=== PATIENT | female | born 1950 | race Caucasian/White ===

== ENCOUNTER 2023-10-09 01:02 | Inpatient (IN) | payer MEDICARE ==
[~2023-10-09] VITALS: Ht 170.2 cm; Wt 62.6 kg
[~2023-10-09 01:02] MED LIST: ASPI-1406 PO; ATOR20TA65 MT; CYCL10TA21 PO; DOCU-150 PO; FENO134C21 PO; HYDR-4001 PO; LEFL20TA21 PO; LOSA25TA26 PO; METO-385 PO; PRED5TAB48 PO; VITA-261
[2023-10-09] MEDS: SODIUM CHLORIDE 0.9% 1,000 ML IV ONE (01:36)
[2023-10-09 01:55] LABS: BASOPHILS % 0.9 % (0.0-2.0); EOSINOPHILS % 0.8 % (0.0-5.0); HEMATOCRIT. 38.9 % (36.0-48.0); HEMOGLOBIN. 12.6 g/dL (12.0-16.0); MEAN CORPUSCULAR HEMOGLOBIN 27.6 pg (28.0-32.0); MEAN CORPUSCULAR HGB CONC 32.5 g/dL (31.0-37.0); MEAN CORPUSCULAR VOLUME 84.8 fL (81.0-99.0); MEAN PLATELET VOLUME 9.7 fl (7.4-10.4); MONOCYTES % 5.7 % (2.0-8.0); NEUTROPHILS % 52.6 % (40.0-76.0); PLATELET 243 x1000/uL (130-400); RED BLOOD CELL COUNT 4.58 mill/uL (4.2-5.4); RED CELL DISTRIBUTION WIDTH 16.2 % (11.6-14.6); WHITE BLOOD COUNT 11.1 x1000/uL (4.5-11.0)
[2023-10-09 01:59] LABS: CHLORIDE 106 mEq/L (98-107); SODIUM 136 mEq/L (136-145)
[2023-10-09 02:00] LABS: CARBON DIOXIDE 21 mEq/L (21-32)
[2023-10-09 02:05] LABS: CREATININE 1.2 mg/dL (0.6-1.0); GLUCOSE 264 mg/dL (70-105); UREA NITROGEN BLOOD 24 mg/dL (9-23)
[2023-10-09 02:21] LABS: TROPONIN I HIGH SENSITIVITY 50 ng/L (3.0-34)
[2023-10-09 02:32] LABS: PROTHROMBIN TIME 10.8 sec (9.6-11.0)
[2023-10-09] MEDS: ASPIRIN 81MG TABLET PO ONE (02:54)
[2023-10-09 12:00] VITALS: BP 129/75; PULSE 71; RESP 20; TEMP 97.6
[2023-10-09] MEDS: METOPROLOL TARTRATE 25MG TABLET PO NR (13:15)
[2023-10-09] MEDS ORDERED: ONDANSETRON HCL 4MG/2ML INJ IV PRN (13:15)
[2023-10-09] MEDS ORDERED: ACETAMINOPHEN 325MG TABLET PO PRN (13:15)
[2023-10-09 13:35] VITALS: BP 129/75; PULSE 71; RESP 20; TEMP 97.6
[2023-10-09 20:00] VITALS: BP 162/82; PULSE 75; RESP 20; TEMP 98
[2023-10-09] MEDS: METOPROLOL TARTRATE 25MG TABLET PO SCH (20:43)
[2023-10-09] MEDS ORDERED: METOPROLOL TARTRATE 25MG TABLET PO SCH (21:00)
[2023-10-09] MEDS: ATORVASTATIN CALCIUM 40MG TABLET PO SCH (21:00)
[2023-10-09] MEDS ORDERED: DOCUSATE SODIUM 100MG CAPSULE PO PRN (21:00)
[2023-10-09] MEDS ORDERED: CYCLOBENZAPRINE 10MG TABLET PO PRN (21:14)
[2023-10-09] MEDS ORDERED: HYDROCODONE/ACETAMINOPHEN 5/325MG TABLET PO PRN (21:14)
[2023-10-10] VITALS: BP 155/80; PULSE 74; RESP 20; TEMP 97.8
[2023-10-10 04:00] VITALS: BP 177/100; PULSE 78; RESP 20; TEMP 98.2
[2023-10-10] MEDS: CLONIDINE 0.1MG TABLET PO PRN (04:44)
[2023-10-10 08:00] VITALS: BP 143/77; PULSE 78; RESP 20; TEMP 98.1
[2023-10-10] MEDS: ASPIRIN 81MG EC TABLET PO SCH (08:40)
[2023-10-10] MEDS: LOSARTAN 25 MG TABLET PO SCH (08:40)
[2023-10-10] MEDS ORDERED: ATORVASTATIN CALCIUM 40MG TABLET PO SCH (09:00)
[2023-10-10 12:00] VITALS: BP 130/79; PULSE 79; RESP 18; TEMP 98.7
[2023-10-10] MEDS: LEVOTHYROXINE SODIUM 50MCG TABLET PO SCH (14:18)
[2023-10-10] MEDS ORDERED: LEVO50TA MT (14:23)
[2023-10-10 15:34] VITALS: BP 18/130; PULSE 79; TEMP 98.7; O2SAT 79
[2023-10-10 17:40] LABS: POTASSIUM 4.1 mEq/L (3.5-5.1)
[2023-10-10 17:41] LABS: CALCIUM 9.1 mg/dL (8.7-10.4)
[2023-10-10 17:42] LABS: BASOPHILS % 0.5 % (0.0-2.0); EOSINOPHILS % 0.9 % (0.0-5.0); HEMOGLOBIN. 12.5 g/dL (12.0-16.0); LYMPHOCYTES % 18.4 % (20.0-50.0); MEAN CORPUSCULAR VOLUME 84.8 fL (81.0-99.0); MEAN PLATELET VOLUME 9.8 fl (7.4-10.4); MONOCYTES % 8.1 % (2.0-8.0); NEUTROPHILS % 72.1 % (40.0-76.0); PLATELET 199 x1000/uL (130-400); RED BLOOD CELL COUNT 4.48 mill/uL (4.2-5.4)
== END 2023-10-10 16:50 | disposition home or self-care (01) | DRG 310 ==
LOC: ER 01:12 → EDBD 01:12 → 5WST 03:33 → EDBEDREQTM 03:37 → EDBEDREQ 03:37 → 7WST 12:05
PROVIDERS: ADMIT Internal Medicine; ATTEND Internal Medicine
DX: I47.10 Supraventricular tachycardia, unspecified (principal); I95.89 Other hypotension; I10 Essential (primary) hypertension; I25.10 Atherosclerotic heart disease of native coronary artery without angina pectoris; I49.3 Ventricular premature depolarization; Z88.0 Allergy status to penicillin; Z79.899 Other long term (current) drug therapy
CPT/HCPCS: 36415; 71045; 80048; 83036; 83880; 84443; 84484; 85025; 93005; 99291; J7030

== ENCOUNTER 2024-02-06 21:06 | Inpatient (IN) | payer MEDICARE ==
[~2024-02-06] VITALS: Ht 157.5 cm; Wt 103.4 kg
[~2024-02-06 21:06] MED LIST changes: +LEVO50TA MT
[2024-02-06] MEDS: SODIUM CHLORIDE 0.9% 500 ML IV ONE (21:46)
[2024-02-06 21:55] LABS: CHLORIDE 109 mEq/L (98-107); POTASSIUM 4.3 mEq/L (3.5-5.1); SODIUM 137 mEq/L (136-145)
[2024-02-06 21:56] LABS: CARBON DIOXIDE 16 mEq/L (21-32)
[2024-02-06 22:01] LABS: CREATININE 1.3 mg/dL (0.6-1.0)
[2024-02-06 22:02] LABS: GLUCOSE 160 mg/dL (70-105); UREA NITROGEN BLOOD 18 mg/dL (9-23)
[2024-02-06 22:10] LABS: TROPONIN I HIGH SENSITIVITY 98 ng/L (3.0-34)
[2024-02-06] MEDS: ASPIRIN 325MG EC TABLET PO ONE (22:48)
[2024-02-07] MEDS: METOPROLOL TARTRATE 50MG TABLET PO SCH
[2024-02-07 00:13] LABS: THYROID STIMULATING HORMONE 3.41 uIU/mL (0.55-4.78)
[2024-02-07 02:37] LABS: BASOPHILS % 0.8 % (0.0-2.0); EOSINOPHILS % 0.3 % (0.0-5.0); HEMATOCRIT. 35.1 % (36.0-48.0); HEMOGLOBIN. 11.4 g/dL (12.0-16.0); LYMPHOCYTES % 15.7 % (20.0-50.0); MEAN CORPUSCULAR HEMOGLOBIN 28.2 pg (28.0-32.0); MEAN CORPUSCULAR HGB CONC 32.4 g/dL (31.0-37.0); MEAN CORPUSCULAR VOLUME 87.2 fL (81.0-99.0); MEAN PLATELET VOLUME 9.5 fl (7.4-10.4); MONOCYTES % 7.6 % (2.0-8.0); NEUTROPHILS % 75.6 % (40.0-76.0); PLATELET 212 x1000/uL (130-400); RED BLOOD CELL COUNT 4.03 mill/uL (4.2-5.4); RED CELL DISTRIBUTION WIDTH 15.4 % (11.6-14.6); WHITE BLOOD COUNT 8.7 x1000/uL (4.5-11.0)
[2024-02-07 04:05] LABS: PROTHROMBIN TIME 10.8 sec (9.6-11.0)
[2024-02-07] MEDS: ENOXAPARIN 100MG/ML SYR SUBCUT SCH (06:40)
[2024-02-07 22:28] VITALS: BP 115/74; PULSE 65; RESP 18; TEMP 37.5856
[2024-02-08 00:02] VITALS: BP 132/67; PULSE 71; RESP 19; TEMP 36.3918; O2SAT 96
[2024-02-08 04:00] VITALS: BP 146/72; PULSE 73; RESP 18; TEMP 36.44736; O2SAT 98
[2024-02-08 07:51] LABS: HEMATOCRIT 36.4 % (36.0-48.0); HEMOGLOBIN 11.7 g/dL (12.0-16.0); MEAN CORPUSCULAR HEMOGLOBIN 27.7 pg (28.0-32.0); MEAN CORPUSCULAR HGB CONC 32.2 g/dL (31.0-37.0); MEAN CORPUSCULAR VOLUME 86.2 fL (81.0-99.0); PLATELET 184 x1000/uL (130-400); RED BLOOD CELL COUNT 4.23 mill/uL (4.2-5.4); RED CELL DISTRIBUTION WIDTH 14.9 % (11.6-14.6); WHITE BLOOD COUNT 4.6 x1000/uL (4.5-11.0)
[2024-02-08 08:00] VITALS: BP 150/70; PULSE 68; RESP 20; TEMP 36.61404; O2SAT 98
[2024-02-08 08:18] LABS: CARBON DIOXIDE 22 mEq/L (21-32); CHLORIDE 111 mEq/L (98-107); POTASSIUM 3.8 mEq/L (3.5-5.1); SODIUM 140 mEq/L (136-145)
[2024-02-08 08:19] LABS: CALCIUM 8.7 mg/dL (8.7-10.4)
[2024-02-08 08:22] LABS: CREATINE KINASE MB FRACTION 7.3 ng/mL (0.5-3.6)
[2024-02-08 08:24] LABS: CREATININE 0.9 mg/dL (0.6-1.0); GLUCOSE 96 mg/dL (70-105); TRIGLYCERIDE 187 mg/dL (0-150); UREA NITROGEN BLOOD 26 mg/dL (9-23)
[2024-02-08 08:25] LABS: LDL CHOLESTEROL 67 mg/dL (5-100)
[2024-02-08 08:26] LABS: CHOLESTEROL 133 mg/dL (<200); CREATINE KINASE 98 IU/L (34-145); HDL CHOLESTEROL 34 mg/dL (>65)
[2024-02-08 08:36] LABS: TROPONIN I HIGH SENSITIVITY 2634 ng/L (3.0-34)
[2024-02-08] MEDS ORDERED: METOPROLOL TARTRATE 50MG TABLET PO SCH (09:00)
[2024-02-08] MEDS ORDERED: SACUBITRIL/VALSARTAN 24MG/26MG TABLET PO SCH (09:00)
[2024-02-08] MEDS: ASPIRIN 81MG TABLET PO SCH (09:26)
[2024-02-08] MEDS: DOCUSATE SODIUM 100MG CAPSULE PO SCH (09:26)
[2024-02-08] MEDS: SACUBITRIL/VALSARTAN 24MG/26MG TABLET PO SCH (09:27)
[2024-02-08] MEDS: SODIUM BICARBONATE 650MG TABLET PO SCH (09:30)
[2024-02-08 09:39] LABS: CREATINE KINASE 101 IU/L (34-145)
[2024-02-08 11:46] VITALS: BP 136/69; PULSE 59; RESP 18; TEMP 36.28068; O2SAT 98
[2024-02-08] MEDS: AMIODARONE 200MG TABLET PO SCH (13:30)
[2024-02-08] MEDS: SODIUM CHLORIDE 0.9% 1,000 ML IV SCH (14:50)
[2024-02-08 16:00] VITALS: BP 140/60; PULSE 70; RESP 22; TEMP 36.44736; O2SAT 100
[2024-02-08 16:58] LABS: CLARITY URINE CLEAR (CLEAR); COLOR URINE YELLOW (YELLOW); GLUCOSE URINE NEGATIVE (NEGATIVE); KETONES URINE NEGATIVE (NEGATIVE); LEUKOCYTE ESTERASE URINE NEGATIVE (NEGATIVE); NITRITE URINE NEGATIVE (NEGATIVE); OCCULT BLOOD URINE NEGATIVE (NEGATIVE); PH URINE 5.5 (4.5-8.0); PROTEIN URINE NEGATIVE (NEGATIVE); SPECIFIC GRAVITY URINE 1.009 (1.005-1.030); UROBILINOGEN URINE 0.2 E.U./dL (0.2-1.0)
[2024-02-08 19:57] VITALS: BP 98/74; PULSE 85; RESP 18; TEMP 36.61404; O2SAT 97
[2024-02-08] MEDS: ATORVASTATIN CALCIUM 40MG TABLET PO SCH (21:20)
[2024-02-09] VITALS: BP 136/70; PULSE 65; RESP 18; TEMP 36.28068; O2SAT 98
[2024-02-09 04:00] VITALS: BP 106/70; PULSE 67; RESP 20; TEMP 36.28068; O2SAT 96
[2024-02-09 06:51] LABS: HEMATOCRIT 38.4 % (36.0-48.0); HEMOGLOBIN 12.4 g/dL (12.0-16.0); MEAN CORPUSCULAR HEMOGLOBIN 28.1 pg (28.0-32.0); MEAN CORPUSCULAR HGB CONC 32.4 g/dL (31.0-37.0); MEAN CORPUSCULAR VOLUME 86.6 fL (81.0-99.0); PLATELET 184 x1000/uL (130-400); RED BLOOD CELL COUNT 4.43 mill/uL (4.2-5.4); RED CELL DISTRIBUTION WIDTH 14.9 % (11.6-14.6); WHITE BLOOD COUNT 4.8 x1000/uL (4.5-11.0)
[2024-02-09 06:54] LABS: CHLORIDE 108 mEq/L (98-107); POTASSIUM 3.9 mEq/L (3.5-5.1); SODIUM 142 mEq/L (136-145)
[2024-02-09 06:55] LABS: CALCIUM 9.1 mg/dL (8.7-10.4); CARBON DIOXIDE 26 mEq/L (21-32)
[2024-02-09 06:59] LABS: THYROID STIMULATING HORMONE 6.61 uIU/mL (0.55-4.78)
[2024-02-09 07:00] LABS: GLUCOSE 100 mg/dL (70-105); UREA NITROGEN BLOOD 20 mg/dL (9-23)
[2024-02-09 08:00] VITALS: BP 114/60; PULSE 77; RESP 18; TEMP 36.44736; O2SAT 98
[2024-02-09 12:00] VITALS: BP 117/73; PULSE 69; RESP 22; TEMP 36.72516; O2SAT 98
[2024-02-09 16:00] VITALS: BP 145/91; PULSE 77; RESP 20; TEMP 36.55848; O2SAT 96
[2024-02-09] MEDS ORDERED: AMIO400T11 PO ×2 (16:11→18:16)
[2024-02-09 17:09] VITALS: BP 141/90; PULSE 77; TEMP 97.6; O2SAT 96
== END 2024-02-09 18:55 | disposition home or self-care (01) | DRG 281 ==
LOC: ER 21:06 → MICUSO 22:47 → 5WST 02-07 16:43 → 7WST 02-07 20:56
PROVIDERS: ADMIT Internal Medicine; ATTEND Internal Medicine
PROC: 5A2204Z Restoration of Cardiac Rhythm, Single (ICD-10-PCS; principal; 2024-02-06)
DX: I47.19 Other supraventricular tachycardia (principal); E87.20 Acidosis, unspecified; I21.A1 Myocardial infarction type 2; N17.9 Acute kidney failure, unspecified; Z88.8 Allergy status to other drugs, medicaments and biological substances; I10 Essential (primary) hypertension; D64.9 Anemia, unspecified; I25.10 Atherosclerotic heart disease of native coronary artery without angina pectoris; I49.3 Ventricular premature depolarization; E78.5 Hyperlipidemia, unspecified; Z79.82 Long term (current) use of aspirin; Z88.0 Allergy status to penicillin; Z79.899 Other long term (current) drug therapy
CPT/HCPCS: 36415; 71045; 76770; 80048; 80061; 81003; 82550; 82553; 83735; 83880; 84443; 84484; 85025; 85027; 93005; 93306; 99285; J1650; J7040